=== PATIENT | female | born 1985 | race Caucasian/White ===

== ENCOUNTER 2025-06-05 15:14 | Outpatient (AMB) | payer BC, SELFPAY ==
--- NOTE | 2025-06-05 15:48 | MHC.PC.OV ---
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 Operator Required: No Accompanied by: Self / Same As Patient Allergies No Known Allergies Allergy (Verified 06/05/25 15:49) Tobacco use date assessed: 06/05/25 Dental Screening Dental Screen Date: 06/05/25 Did you have a dental visit in the last 12 months?: Yes Did you have a dental problem in the last 6 months where you did not have access to dental care?: No Was dental information given to patient?: Patient has dentist HPI HPI Comments History of Present Illness Details History of Present Illness The patient is a 40-year-old female presenting to [facility] care with a new primary care provider to obtain referrals for specialty care. Need for specialist referrals: The patient's changed jobs, resulting in a new insurance plan that requires referrals for specialty care. Her previous primary care provider left the practice, and the new, un-met provider in that practice denied her a dermatology referral without an appointment. She requires referrals for podiatry for a toe issue, dermatology for eczema, audiology for hearing aid repair, and potentially F[facility] BLOCK INSERTER REMOVER for continued care. Ingrown toenail: The patient dropped a hammer on her toe in January, which led to severe cellulitis treated with Bactrim. The toenail subsequently fell off and is now growing back in a way that is becoming ingrown and starting to hurt. She attempted to use floss to guide the nail growth but notes it is already coming down. 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 She has a cochlear implant on the left side, placed in 2018, and an inner ear hearing aid on the right side which is currently broken. Severe Eczema: The patient has severe eczema that is worsening. Her current cream, Namluvio, which she has been using for about four months, has stopped working effectively. She has experienced cracked and bleeding hands and raw skin behind her knees. She is interested in trying Dupixent. Generalized Anxiety Disorder (ARACELY): The patient was recently diagnosed with generalized anxiety disorder and has been seeing a therapist. She will need to find a new therapist as her current one is in her previous practice. History of Prediabetes and Elevated Blood Pressure: The patient has a history of prediabetes, which resolved with weight loss. She continues to work on her blood pressure, which she checks daily and notes is pretty stable. Abnormal Uterine Bleeding: After she finished nursing her second child, the patient's period returned with a vengeance . 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 - Housing: Lives in [place], [place]. - Family Status: with a 13-year-old and a 12-year-old. Family History: - Breast cancer: Present in great aunts and distant cousins. - Mother: Has very dense breasts requiring follow-up sonograms after mammograms. - Children: In the process of being tested for genetic hearing loss. Diagnostic Results: - Pap smear: Last performed in May of the previous year. - Blood work: Performed in November or December. - Genetic testing: Recent results indicate a genetic component to her hearing loss. 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 - Orders will include CBC, CMP, A1c, lipids, TSH, syphilis, hepatitis B, hepatitis C, HIV, B12, folate, vitamin D, and a urinalysis. - Plan to schedule a follow-up visit to discuss the results. [facility] Medical History (Updated 06/07/25 @ 13:07 by Binh Moscoso MD) Exhaustion Sleep disturbance Snoring ARACELY (generalized anxiety disorder) Sleep apnea Ingrown toenail Eczema Hearing aid worn Cochlear implant in place Family History (Updated 06/05/25 @ 15:59 by Nikolas Aguillon MA) Father High cholesterol Mother High cholesterol High blood pressure Social History Housing: House Patient Tobacco Use Status: Never used Tobacco service: No Current occupational status: employed Cognitive needs: No Hearing needs: Yes Vision needs: No Questionnaire PHQ-9 Over the last 2 weeks, how often have you been bothered by any of the following problems? 1. Little interest or pleasure in doing things: not at all 2. Feeling down, depressed, or hopeless: not at all 3. Trouble falling or staying asleep, or sleeping too much: several days 4. Feeling tired or having little energy: several days 5. Poor appetite or overeating: several days 6. Feeling bad about yourself - or that you are a failure or have let yourself or your family down: several days 7. Trouble concentrating on things, such as reading the newspaper or watching television: several days 8. Moving or speaking so slowly that other people could have noticed. Or the opposite - being so fidgety or restless that you have been moving around a lot more than usual: not at all 9. Thoughts that you would be better off or of hurting yourself in some way: not at all Total score: 5 Source: Developed by Drs. Matias Coleman, Jane Taylor, Dillon Pate and colleagues, with an educational demetrius from [employer]. Thrive Questionnaire Date Thrive assessed: 06/05/25 I am a: Patient What is your living situation today?: I have a steady place to live Within the past 12 months, did the food you bought not last and you didn't have the money to get more?: Sometimes True Within the past 12 months, did you worry whether your food would run out before you got money to buy more?: Sometimes True Do you have trouble paying for medicines?: No Do you have trouble getting transportation to medical appointments?: No Do you have trouble paying your heating and electricity bill?: No Do you have trouble taking care of your child, family member or friend?: No Are you currently unemployed and looking for a job?: No Are you interested in more education?: No Please select the resources that you would like help with: None Currently or been in a relationship where the following occur: No concerns reported THRIVE Score: 2 AUDIT C Alcohol Use Questionnaire (AUDIT-C) 1. How often do you have a drink containing alcohol?: 4 or more times a week 2. How many drinks containing alcohol do you have on a typical day when you are drinking?: 1 or 2 3. How often do you have six or more drinks on one occasion?: Never Total Score: 4 ARACELY-7 AMB Questionnaire ARACELY-7 Feeling nervous, anxious, or on edge: 3 = Nearly every day Not being able to stop or control worryin = Several days Worrying too much about different things: 2 = More than half the days Trouble relaxin = More than half the days Being so restless that it is hard to sit still: 1 = Several days Becoming easily annoyed or irritable: 3 = Nearly every day Feeling afraid as if something awful might happen: 0 = Not at all Total ARACELY-7 score (0-4 normal; 5-9 mild; 10-14 moderate; 15-21 severe): 12 Source: Developed by Drs. Matias Coleman, Jane Taylor, Dillon Pate and colleagues, with an educational demetrius from [employer]. Review of Systems Narrative Review of Systems - General: Reports feeling exhausted all the time. - HEENT: Reports hearing loss; has a cochlear implant on the left and a broken in-ear hearing aid on the right. - Cardiovascular: Reports daily checks of blood pressure, which is elevated but stable. Denies chest pain. - Neurological/Sleep: Reports snoring and not feeling refreshed in the morning. - Gastrointestinal: Denies having a bowel movement every day, but states when she does, it is normal for her. - Genitourinary/Gynecological: Had normal pregnancies and childbirths. Periods are light, with a day or two of spotting, managed by a Mirena IUD. - Integumentary: Reports severe, worsening eczema, with dryness, cracking, and bleeding of hands, and raw skin behind her knees. - Musculoskeletal: Reports a great toe is becoming an ingrown nail and starting to hurt. Denies other pain. - Psychiatric: Reports generalized anxiety disorder. 10-point ROS reviewed and negative except as noted in HPI Physical exam (Primary Care) Vital Signs: Last Vital Signs Temp 97.9 F 06/05/25 15:57 Pulse 84 06/05/25 15:57 Resp 16 06/05/25 15:57 BP 141/88 H 06/05/25 15:57 Pulse Ox 100 06/05/25 15:57 Oxygen Delivery Method Room Air 06/05/25 15:57 BMI result Body Mass Index 38.1 Tobacco/Smoking Status: Tobacco use Status Tobacco use date assessed 06/05/25 06/05/25 15:56 Patient Tobacco Use Status Never used Tobacco 06/05/25 15:56 PHQ-9: PHQ-9 Score PHQ-9: Total score 5 06/05/25 15:56 Thrive Assessment: Date of Thrive Assessment Date Thrive assessed 06/05/25 06/05/25 15:56 Currently or been in a relationship where the following occur: No concerns reported Narrative Physical Exam General: Well-appearing, in no acute distress. Vital signs: Within normal limits. HEENT: Normocephalic, atraumatic. PERRLA, EOMI. Conjunctiva clear, sclera anicteric. Oropharynx clear, mucous membranes moist. TMs intact bilaterally. Neck: Supple, no lymphadenopathy, no thyromegaly, no JVD or carotid bruits. Cardiovascular: RRR, normal S1/S2, no murmurs, rubs, or gallops. Peripheral pulses 2+ and symmetric. No edema. Respiratory: Lungs clear to auscultation bilaterally, no wheezes, rales, or rhonchi. Normal effort. Abdomen: Soft, non-tender, non-distended. Normoactive bowel sounds. No hepatosplenomegaly, no masses. MSK: Full range of motion, no joint swelling or deformity. Normal gait. Skin: Warm, dry, intact. No rashes, lesions, or pallor. Notable for severe eczema, particularly on hands and behind knees. Neuro: Alert and oriented x3. Cranial nerves II-XII intact. Strength 5/5 throughout. Sensation intact. Reflexes 2+ symmetric. Normal coordination and gait. Psych: Appropriate mood and affect. Normal judgment and insight. Recently diagnosed with general anxiety disorder. Coding Level of Care Code New Pt Level 4 (11268) Add On Problem Visit Only Diagnoses Cochlear implant in place Z96.21 Hearing aid worn Z97.4 Eczema L30.9 Ingrown toenail L60.0 Sleep apnea G47.30 ARACELY (generalized anxiety disorder) F41.1 Snoring R06.83 Sleep disturbance G47.9 Exhaustion R53.83 Assessment & Plan Assessment & Plan (1) Cochlear implant in place: Code(s): Z96.21 - Cochlear implant status Category: Medical (2) Hearing aid worn: Code(s): Z97.4 - Presence of external hearing-aid Category: Medical (3) Eczema: Code(s): L30.9 - Dermatitis, unspecified Category: Medical (4) Ingrown toenail: Code(s): L60.0 - Ingrowing nail Category: Medical (5) Sleep apnea: Code(s): G47.30 - Sleep apnea, unspecified Category: Medical (6) ARACELY (generalized anxiety disorder): Code(s): F41.1 - Generalized anxiety disorder Category: Medical (7) Snoring: Code(s): R06.83 - Snoring Category: Medical (8) Sleep disturbance: Code(s): G47.9 - Sleep disorder, unspecified Category: Medical (9) Exhaustion: Code(s): R53.83 - Other fatigue Category: Medical Plan Consent The patient verbally consented to having a picture taken of her toe for documentation in her chart. Patient was informed and verbally consented to the use of an ambient scribe for clinic note documentation during this visit. Plan 1. Referral Management - Provide open referrals for podiatry, dermatology, and audiology. - Provide a referral for her [facility]ERTER REMOVER. - The patient was informed that the practice has an in-house podiatry department. 2. Ingrown Toenail - Place referral for in-house podiatry, who will call to schedule an appointment. - Advised patient to keep her existing podiatry appointment and take whichever appointment is sooner. 3. Suspected Sleep Apnea - Based on symptoms of snoring, unrefreshing sleep, and constant exhaustion, sleep apnea is suspected. - Will order a home sleep study to investigate. Discussion Notes I met with the patient, a 40-year-old female, who is establishing care with me as her new primary care provider. The main reason for her visit was the need for specialist referrals due to a change in her insurance plan. I agreed to provide open referrals for podiatry, dermatology, audiology, and her established [facility] [employer] INSERTER REMOVER. We discussed her ingrown toenail, and I recommended she see our in-house tile layer supervisor, advising her to take whichever appointment comes first, her scheduled one or ours. Given her report of snoring and constant fatigue, I recommended a home sleep study to evaluate for sleep apnea, which she has never been tested for. I also ordered comprehensive baseline blood work, including a CBC, CMP, A1c, lipid panel, and TSH, among others, to establish a baseline for her health. We will have a follow-up appointment to discuss the results. I performed a limited physical exam and assured the patient that I was billing for a new patient encounter, not a full physical, to avoid issues with her insurance. Patient Instructions - You will receive referrals for podiatry, dermatology, and audiology. - Our office will provide a referral for our in-house tile layer supervisor, who will call you to schedule an appointment. Please keep your existing podiatry appointment for next and take whichever appointment becomes available sooner. - We are ordering a home sleep study for you. A company will call you to arrange picking up the testing kit. - Please go to the lab to have comprehensive blood work and a urine test done. - Schedule a follow-up appointment to discuss all of your test results. - Please let us know if you have any difficulty getting an appointment with your F[facility] BLOCK INSERTER REMOVER, and we can provide that referral as well. Medical Decision Making The patient is a 40-year-old female establishing care today. Her primary need is obtaining specialist referrals due to a new insurance policy requiring them, which her prior practice failed to provide for an established patient of record. Given her straightforward request and status as an established patient within her previous health system, I find it clinically appropriate to issue the requested referrals for podiatry, dermatology, audiology, and her established [facility] [employer] INSERTER REMOVER. Upon review of her symptoms, several new diagnostic avenues were identified. The patient reports snoring, constant exhaustion, and unrefreshing sleep. While she attributes this to anxiety, these are classic symptoms of obstructive sleep apnea, a condition for which she has never been evaluated. Therefore, ordering a home sleep study is a logical next step to rule out or confirm this diagnosis. As this is a new patient encounter and her last labs were several months ago with a different provider, obtaining comprehensive baseline labs is essential for ongoing management. The panel ordered (CBC, CMP, A1c, lipids, TSH, vitamin levels) will provide a current metabolic and hematologic status, screen for common conditions, and establish a new baseline for her care within this practice. A follow-up visit is planned to review these results and formulate a long-term care plan. Total Time Statement 30 min Total time spent caring for the patient today includes pre-visit chart review, documentation, review of laboratory and diagnostic imaging results, medication reconciliation, medically necessary evaluation, counseling on diagnoses, care coordination, ordering appropriate tests and medications, review of tests performed by other providers, reporting test results to the patient, and communication with other healthcare providers. Orders: Orders Complete Blood Count Auto Diff 06/05/25 Z. - Encounter for screening, unspecified Syphilis Screen 06/05/25. - Encounter for screening, unspecified Comprehensive Met. Panel 06/05/25. - Encounter for screening, unspecified Magnesium 06/05/25 Z. - Encounter for screening, unspecified Vitamin D 25-OH (D2 and D3) 06/05/25 Z. - Encounter for screening, unspecified RT home sleep study 06/05/25 G47.30 - Sleep apnea, unspecified Hepatitis B Surface Antigen 06/05/25 Z13. - Encounter for screening, unspecified Hepatitis C Antibody 06/05/25 Z13. - Encounter for screening, unspecified TSH reflex Free T4 06/05/25 Z13. - Encounter for screening, unspecified CT NG by PCR Urine 06/05/25 Z13. - Encounter for screening, unspecified HIV Ab/Ag 06/05/25 Z13. - Encounter for screening, unspecified UA CC w/rflx Micro + Cult 06/05/25 Z13. - Encounter for screening, unspecified Lipid Panel 06/05/25 Z13. - Encounter for screening, unspecified Vitamin B12 and Folate 06/05/25 Z13. - Encounter for screening, unspecified Hemoglobin A1c 06/05/25 Z13. - Encounter for screening, unspecified Hepatitis B Surface Antibody 06/05/25 Z13. - Encounter for screening, unspecified Referrals Podiatry Referral L60.0 - Ingrowing nail Dermatology Referral L30.9 - Dermatitis, unspecified Audiology Referral Z96.21 - Cochlear implant status, Z97.4 - Presence of external hearing-aid
[2025-06-05 15:57] VITALS: BP 141/88; PULSE 84; RESP 16; TEMP 36.6; O2SAT 100; BMI 38.1
--- OUTSIDE RECORDS SUMMARY | 2025-06-05 23:47 | XMS_ITS | Clinical Summary ---
Author Organization [facility] Address [address] [place] [address] Care Team Providers Care Layaway Clerk Name Role Phone Diamond Mccormick Primary Care Provider [phone] Allergies Active Allergy Reactions Criticality Noted Date Comments Other 08/17/2013 Other Reaction(s): Not available Social History Tobacco Use Types Packs/Day Years Used Date Smoking Tobacco: Never Smokeless Tobacco: Never Tobacco Cessation:Counseling Given: Not Answered Alcohol Use Standard Drinks/Week Comments Yes 0 (1 standard drink = 0.6 oz pur e alcohol) occ Comments Unknown Sex and Gender Information Value Date Recorded Sex Assigned at Not on file Legal Sex Female 3:30 PM EDT Gender Identity Not on file Sexual Orientation Not on file Last Filed Vital Signs Vital Sign Reading Time Taken Comments Blood Pressure - - Pulse - - Temperature - - Respiratory Rate - - Oxygen Saturation - - Inhaled Oxygen Concentration - - Weight 99.8 kg (220 lb) 12/26/2024 3:05 PM EDT Height 167.6 cm (5' 6 ) 12/26/2024 3:05 PM EDT Body Mass Index 35.51 12/26/2024 3:05 PM EDT Plan of Treatment Health Maintenance Due Date Last Done Comments HIV Screening 1986 Hepatitis C Screening 2004 Hepatitis B Vaccines (1 of 3 - 19+ 3-dose series) 2005 Pneumococcal Vaccine: At-Ris k and Pediatric Patients (0 to 49 Years) (1 of 2 - PCV) 2005 Pap Smear 2007 HPV Vaccines (1 - 3-dose SCD M series) 2013 Cervical Cancer Screening 2016 HPV/Cotest 2016 COVID-19 Vaccine (3 - 2024-2 6 season) 2025 03/31/2021, 03/09/2021 Influenza Vaccine (#1) 2025 , 06/03/2021 DTaP,Tdap,and Td Vaccines (2 - Td or Tdap) 07/08/2031 07/08/2021 Zoster Vaccines (1 of 2) 2036 Hepatitis A Vaccines Aged Out 12/09/2016 No long er eligible based on patient's age to complete this topic MMR Vaccines Aged Out No longer eligi ble based on patient's age to complete this topic Meningococcal Vaccine Aged Out No nuvia mc eligible based on patient's age to complete this topic Insurance [employer] Care Teams Layaway Clerk Relationship Specialty Start Date End Date Diamond Mccormick [address] [place] [id number] PCP - General Family Medicine 12/14/24
--- OUTSIDE RECORDS SUMMARY | 2025-06-05 23:47 | XMS_ITS | Clinical Summary ---
Author Organization [facility], Located Within [facility] Address [address] [place] [address] Care Team Providers Care Shovel Handle Assembler Name Role Phone Diamond Mccormick DO Primary Care Provider [phone] Izzy Chisholm REGIONAL PROPERTY MANAGER Unavailable [phone] Allergies No known active allergies Medications * This document contains information received from the source organization and may not represent a complete record from that organization. acetaminophen (TYLENOL) 325 MG tabletIndication s: care following vaginal delivery Take 3 tablets (975 mg total) by mouth 4 times daily (every 6 hours) as needed for mild pain. 30 tablet 2 Active Additional Information Patient not taking.Reported on 02/21/2025 betamethasone, augmented, (DIPROLENE) 0.05 % ointmentIndicati ons:Eczema, unspecified type Apply topically 2 (two) times a day. 50 g 5 Active Additional Information Patient not taking.Reported on 02/21/2025 Nemolizumab-ilto (NEMLUVIO SC) Inject under the skin. Active docusate sodium (COLACE) 100 MG capsule as needed. Active sulfamethoxazole -trimethoprim (BACTRIM DS,SEPTRA DS) 800-160 MG per tabletIndication s:Cellulitis of right toe Take 1 tablet by mouth 2 (two) times a day. 14 tablet 5 Active naproxen (NAPROSYN) 500 MG tabletIndication s:Contusion of right great toe without damage to nail, initial encounter Take 1 tablet (500 mg total) by mouth 2 (two) times a day with meals. Take with meals or food to reduce stomach upset. 20 tablet Active Active Problems Problem Noted Date Diagnosed Date Eczema 11/21/2024 Hearing loss 11/21/2024 Resolved Problems Problem Noted Date Diagnosed Date Resolved Date 39 weeks gestation of 09/15/2021 11/21/2024 and not yet deliver ed in third trimester 08/27/2021 11/21/2024 Pain in joint, lower leg 11/22/2012 Immunizations Immunization Administration Dates Next Due Covid-19 MRNA Vaccine - Pfizer 12+ (Purple Cap) 03/31/2021,03/09/2021 Hepatitis A 12/09/2016 Influenza, Quadrivalent (FLU CELVAX) MDCK, Preservative Free IM 06/03/2021 Influenza, Unspecified 06/03/2021,06/03/2021 Tdap 07/08/2021 Family History Medical History Relation Name Comments Depression Brother 1 Adrian Pickens Mental illness Brother 1 Adrian Pickens Substance Abuse Brother 1 Adrian Pickens Hypertension Brother 2 Hyperlipidemia Father Dementia Maternal Grandfather Demetrius Bond Diabetes Maternal Grandfather Demetrius Bond Heart attack Maternal Grandfather Demetrius Bond Stroke Maternal Grandfather Demetrius Bond Diabetes Maternal Grandmother Ailin Bond Diabetes Mother Oksana Bond Hypertension Mother Oksana Bond Diabetes Paternal Grandfather Danatamirlaw Pickens Diabetes Paternal Grandmother Aleah Pickens Heart disease Paternal Grandmother Aleah Nelia C HF Relation Name Status Comments Brother 1 Adrian Pickens Alive Brother 2 Father Alive Maternal Grandfather Demetrius Bond Alive Maternal Grandmother Ailin Bond Alive Mother Oksana Bond Alive Paternal Grandfather Danagabinoflorentin Pickens Alive Paternal Grandmother Aleah Nelia Alive Social History Tobacco Use Types Packs/Day Years Used Date Smoking Tobacco: Never Smokeless Tobacco: Never Tobacco Cessation:Counseling Given: Not Answered Alcohol Use Standard Drinks/Week Comments Yes 0 (1 standard drink = 0.6 oz pur e alcohol) [facility] Utilities Answer Date Recorded In the past 12 months has e [employer], gas, oil, or water company threatened to shut off services in your home? No 02/20/2025 Social Connection and Isolation Panel Answer Date Recorded In a typical week, how many times do you talk on the phone with family, friends, or neighbors? More than three times a week 02/20/2025 Frequency of Social Gatherin gs with Friends and Family Not on file 02/20/2025 Attends Episcopal Services Not on file 02/20 Active Member of Clubs or Organizations Not on f ile 02/20/2025 Attends Club or Organization Meetings Not on jairon e 02/20/2025 Marital Status Not on file 02/20/2025 AUDIT-C Answer Date Recorded Q1: How often do you have a drink containing alcohol? 4 or more times a week 03/27/2025 Q2: How many drinks containi ng alcohol do you have on a typical day when you are drinking? 1 or 2 Q3: How often do you have si x or more drinks on one occasion? Never 03/27/2025 PHQ-2 Answer Date Recorded PHQ-2 Total Score 1 04/24/2025 Hunger Vital Sign Answer Date Recorded Within the past 12 months, y ou worried that your food would run out before you got the money to buy more. Never true 02/21/20 25 Within the past 12 months, t he food you bought just didn't last and you didn't have money to get more. Never true 02/20/2025 PRAPARE - Transportation Answer Date Re corded In the past 12 months, has l ack of transportation kept you from medical appointments or from getting medications? No 01/26 In the past 12 months, has l ack of transportation kept you from meetings, work, or from getting things needed for daily living? No 02/20/2025 Housing Stability Vital Sign Answer Steven e Recorded In the last 12 months, was t here a time when you were not able to pay the mortgage or rent on time? No 02/20/2025 In the past 12 months, how m any times have you moved where you were living? 2 02/20/2025 At any time in the past 12 m [facility], were you homeless or living in a skilled nursing (including now)? No 02/20/2025 Physical Activity Answer Date Recorded On average, how many days pe r week do you engage in moderate to strenuous exercise (like a brisk walk)? 3 days 02/19/2025 On average, how many minutes do you exercise per day at this level? 20 min 02/19/2025 Education Answer Date Recorded What is the highest level of school you have completed or the highest degree you have received? Associate degree: academic program 11/20/2024 Comments No Sex and Gender Information Value Date Recorded Sex Assigned at Female 11/21/2024 12:17 PM EDT Legal Sex Female 3:48 PM EDT Gender Identity Female 11/21/2024 12:17 PM EDT Sexual Orientation Heterosexual (straight) 11/21 12:17 PM EDT Last Filed Vital Signs Vital Sign Reading Time Taken Comments Blood Pressure 122/81 02/21/2025 8:31 AM EDT Pulse 87 02/21/2025 8:31 AM EDT Temperature 36.6 C (97.8 F) 02/21/2025 8:31 AM EDT Respiratory Rate 20 02/21/2025 8:31 AM EDT Oxygen Saturation 98% 02/21/2025 8:31 AM EDT Inhaled Oxygen Concentration - - Weight 101 kg (222 lb 4.8 oz) 02/20/2025 3:02 PM EDT Height 167.6 cm (5' 6 ) 02/20/2025 3:02 PM EDT Body Mass Index 35.88 02/20/2025 3:02 PM EDT Plan of Treatment Upcoming Encounters Date Type Department Care Team (Late st Contact Info) Description 08/02/2025 2:30 PM EST Office Visit [facility] [address] [place] [address] Garland Francisco S, LEASE ATTENDANT [address] [place] [address] Health Maintenance Due Date Last Done Comments Hepatitis C Virus Screening 1986 Hepatitis B Vaccines (1 of 3 - 19+ 3-dose series) 2005 Influenza Vaccine 01/25/2025 06/03/2021, 06/03/2021, 06/03/2021 COVID-19 Vaccine ( season) 2025 09/02/2021, 03/31/2021, 03/09/2021 Pap Smear (Ages 21-65) 02/06/2026 (Previously Completed) Physical 02/21/2028 02/20/2025, 02/20/2025, 08/03/2021 DTaP/Tdap/Td Vaccines (2 - Td or Tdap) 07/08/2031 07/08/2021 HIV Screening Completed 06/29/2021 Colonoscopy (Out of Age Range) Discontinued HPV Vaccines (No Doses Required) Completed Pneumococcal Vaccine: Pediatric (0-5 Years) and At-Risk Patients (6 to 49 Years) Aged Out No longer eligible b ased on patient's age to complete this topic Procedures Procedure Name Priority Date/Time Associated Diagnosis Comments HIV 1/2 AG/AB CMIA REFLEX TO CONFIRMATION Routine 06/29/2021 11:08 AM EST from Last 3 Months or Most Recently Relevant to Health Maintenance Results * HIV 1/2 Ag/Ab CMIA Reflex to Confirmation (06/29/2021 11:08 AM EST) HIV Ag/Ab, 4th Gen Non-Reacti ve Non-Reacti ve [facility] Comment: Results show no evidence of infection by HIV 1/2. If clinically indicated, repeat CMIA or test by nucleic acid amplification. Other 06/29/2021 11:0 8 AM EST 06/29/2021 11:17 PM EST Narrative [facility] - 06/30/2021 12:47 PM EST FASTING:NO us Emili Fowler MD LAB BLOOD ORDERABLES Final Result [facility] [address] [place], [place] from Last 3 Months or Most Recently Relevant to Health Maintenance Insurance [facility] Advance Directives * Full Code (Latest Code Status on File) Date Activated Date Inactivated Comments 09/15/2021 11:53 PM * Full Code Date Activated Date Inactivated Comments 09/15/2021 4:56 AM 09/15/2021 11:53 PM * Full Code Date Activated Date Inactivated Comments 08/27/2021 5:25 PM 09/15/2021 4:26 AM Care Teams Shovel Handle Assembler Relationship Specialty Start Date End Date Diamond Mccormick DO [address] [place] [address] PCP - General Family Medicine 11/21/24 Izzy Chisholm, REGIONAL PROPERTY MANAGER [facility] [place] [address] Carpenter Clinical Social Work 03/27/25
--- OUTSIDE RECORDS SUMMARY | 2025-06-05 23:47 | XMS_ITS ---
Author Name [facility] Organization Unknown History of Medication Use Medication Directions Dispensed Refills Start Date End Date Stat us naproxen (NAPROSYN) 500 MG tablet Take 1 tablet (500 mg total) by mouth 2 (two) times a day with meals. Take with meals or food to reduce stomach upset. 02/21/2025 active sulfamethoxazole-tr imethoprim (BACTRIM DS,SEPTRA DS) 800-160 MG per tablet Take 1 tablet by mouth 2 (two) times a day. 02/20/2025 active betamethasone, augmented, (DIPROLENE) 0.05 % ointment Apply topically 2 (two) times a day. 11/21/2024 active acetaminophen (TYLENOL) 325 MG tablet Take 3 tablets (975 mg total) by mouth 4 times daily (every 6 hours) as needed for mild pain. 09/17/2021 active Baby Aspirin 81 mg chewable tablet 1 tablet every day by oral route. 1 tablet every day by oral route. 05/04/2021 completed None recorded. (No additional sig information) completed clobetasol 0.05 % topical ointment APPLY A THIN LAYER TO THE AFFECTED AREA(S) BY TOPICAL ROUTE 2 TIMES PER DAY APPLY A THIN LAYER TO THE AFFECTED AREA(S) BY TOPICAL ROUTE 2 TIMES PER DAY completed docusate sodium (COLACE) 100 MG capsule as needed. active docusate sodium 100 mg capsule docusate sodium 100 mg capsule completed hydrocortisone 2.5 % topical cream hydrocortisone 2.5 % topical cream completed ibuprofen 800 mg tablet ibuprofen 800 mg tablet completed Mirena 20 mcg/24 hours (7 yrs) 52 mg intrauterine device Take 1 device by intrauterine route. Take 1 device by intrauterine route. complete d Nemolizumab-ilto (NEMLUVIO SC) Inject under the skin. active Allergies Allergen Reaction Severity Comment Documented Date Source Statu s OTHER Other Reaction( s): Not available 08/17/2013 [facility] active NO KNOWN ALLERGIES [facility] Problems Problem Status Onset Date Problem Type Date of Resolution Source Contusion of right great toe without damage to nail, initial encounter active EncounterDiagnosisAct H [facility] Eczema active 2024-11-21 ProblemAct [facility] Hearing loss active 2024-11-21 ProblemAct [facility] Sensorineural hearing loss (SNHL), bilateral active EncounterDiagnosisAct [facility] Abnormal cervical Papanicolaou smear active ProblemAct [facility] Immunizations Vaccine Date Source Lot Number Status Tdap 07/08/2021 [facility] [id number] completed Influenza, Quadrivalent (FLU CELVAX) MDCK, Preservative Free IM 06/03/2021 [facility] [id number] completed Influenza, Quadrivalent (FLU CELVAX) MDCK, Preservative Free IM 06/03/2021 [facility] [id number] completed Influenza, Unspecified 06/03/2021 [facility] m[facility] Influenza, Unspecified 06/03/2021 [facility] mpleted Covid-19 MRNA Vaccine - Pfiz er 12+ (Purple Cap) 03/31/2021 [facility] completed Covid-19 MRNA Vaccine - Pfiz er 12+ (Purple Cap) 03/31/2021 [facility] completed Covid-19 MRNA Vaccine - Pfiz er 12+ (Purple Cap) 03/09/2021 [facility] completed Covid-19 MRNA Vaccine - Pfiz er 12+ (Purple Cap) 03/09/2021 [facility] completed Hepatitis A 12/09/2016 [facility] completed Hepatitis A 12/09/2016 [facility] completed Encounters Encounter Type Encounter Reason Primary Diagnosis Location Date Ambulatory Foot Injury Foot Injury [facility] 02/21/2025 Ambulatory Encounter for genera l adult medical examination without abnormal findings Encounter for general adult medical examination without abnormal findings [facility] 02/20/2025 Ambulatory Sensorineural hearin g loss, bilateral Sensorineural hearing loss, bilateral [facility] 01/23/2025 Ambulatory [facility] 12/26/2024 Ambulatory New Patient New Patient [facility] 12/19/2024 Ambulatory Dermatitis, unspecified Dermatitis, unspecified [facility] 11/21/2024 Ambulatory [facility] 12/21/2021 [facility]ulatory [facility] 12/21/2021 [facility]ulatory [facility] 11/13/2021 Ambulatory [facility] 10/28/2021 Ambulatory [facility] 09/29/2021 Inpatient Encounter for routine follow-up [facility] 09/15/2021 Ambulatory [facility] 09/09/2021 Ambulatory [facility] 09/09/2021 Ambulatory [facility] 09/09/2021 Ambulatory [facility] 09/02/2021 Ambulatory [facility] 09/02/2021 Ambulatory [facility] 09/02/2021 Ambulatory Encounter for supervision of normal , unspecified, third trimester [facility] 08/27/2021 Ambulatory [facility] 08/26/2021 Ambulatory [facility] 08/19/2021 Ambulatory [facility] 08/05/2021 Ambulatory [facility] 08/05/2021 Ambulatory Encounter for general adult medical examination without abnormal findings [facility] 08/03/2021 Ambulatory [facility] 07/22/2021 Ambulatory [facility] 07/08/2021 Ambulatory [facility] 06/03/2021 Care Team Organization Name Specialty Phone Email Start Date End Da te [facility] 04/18/2025 [facility] LYUDMILA ZACARIAS Primary Care 01/24/20 [employer] DEANN Primary Care 11/21/2024 03/22/2025 LaureanoAlcresta LYUDMILA ZACARIAS Primary Care 11/21/2024 [facility] the [employer] [facility] ([facility]) 11/12/2024 [facility] 04/28/2023 024 [facility] 03/18/2023 024 [facility] 11/26/2022 [facility] 04/28/2022 [facility] 12/25/2021 LaureanoAlcresta GASTON MARK Primary Care 09/15/2021 [facility] NO PCP Primary Care 08/03/2021 09/15/2021 [facility] Brenda Primary Care 08/03/2021 09/15/2021 [facility] 06/03/2021 12/21/2021 GiulianoiatrNan Meza.
--- OUTSIDE RECORDS SUMMARY | 2025-06-05 23:47 | XMS_ITS | Encounter Summary ---
Author Organization [facility] Address [address] [place] [address] Care Team Providers Care Protein Chemist Name Role Phone Diamond Mccormick DO Primary Care Provider [phone] Izzy Chisholm MERCERIZING RANGE FEEDER Unavailable [phone] Encounter Details Date Type Department Care Team (Late st Contact Info) Description 02/21/2025 Scanned Document [address] [place] [phone] Provider, Generic Social History Tobacco Use Types Packs/Day Years Used Date Smoking Tobacco: Never Smokeless Tobacco: Never Alcohol Use Standard Drinks/Week Comments Yes 0 (1 standard drink = 0.6 oz pur e alcohol) [facility] Utilities Answer Date Recorded In the past 12 months has e electric, gas, oil, or water company threatened to shut off services in your home? No 02/20/2025 Social Connection and Isolation Panel Answer Date Recorded In a typical week, how many times do you talk on the phone with family, friends, or neighbors? More than three times a week 02/20/2025 Frequency of Social Gatherin gs with Friends and Family Not on file 02/20/2025 Attends Hindu Services Not on file 02/20 Active Member of Clubs or Organizations Not on f ile 02/20/2025 Attends Club or Organization Meetings Not on jairon e 02/20/2025 Marital Status Not on file 02/20/2025 AUDIT-C Answer Date Recorded Q1: How often do you have a drink containing alcohol? 4 or more times a week 11/20/2024 Q2: How many drinks containi ng alcohol do you have on a typical day when you are drinking? 1 or 2 Frequency of Binge Drinking Not on file 10/26 PHQ-2 Answer Date Recorded PHQ-2 Total Score 1 02/19/2025 Hunger Vital Sign Answer Date Recorded Within [...] any time in the past 12 m [facility], were you homeless or living in a senior care (including now)? No 02/20/2025 Physical Activity Answer [...] Orientation Heterosexual (straight) 11/21 12:17 PM EDT documented as of this encounter Plan of Treatment Upcoming Encounters Date Type Department Care Team (Late st Contact Info) Description 08/02/2025 2:30 PM EST Office [facility] [address] [facility] [place] [address] Garland Francisco APRN [address] [facility] [place] [address] documented as of this encounter Visit Diagnoses Not on filedocumented in this encounter Care Teams Protein Chemist Relationship Specialty Start Date End Date Diamond Mccormick DO [address] [facility] [address] [place] [address] PCP - General Family Medicine 11/21/24 Izzy Chisholm, MERCERIZING RANGE FEEDER [address] [facility] [place] [address] Public Health Director Clinical Social Work 03/27/25 documented as of this encounter
== END 2025-06-05 16:30 | disposition home or self-care (01) ==
LOC: HO.HMCFMS 15:15
PROVIDERS: PCP Student in an Organized Health Care Education/Training Program; Visit Provider Student in an Organized Health Care Education/Training Program
DX: Z96.21 Cochlear implant status (principal); Z97.4 Presence of external hearing-aid; L30.9 Dermatitis, unspecified; L60.0 Ingrowing nail; G47.30 Sleep apnea, unspecified; F41.1 Generalized anxiety disorder; R06.83 Snoring; G47.9 Sleep disorder, unspecified; R53.83 Other fatigue

== ENCOUNTER 2025-06-18 14:57 | Outpatient (REF) | payer BC, SELFPAY ==
--- OUTSIDE RECORDS SUMMARY | 2025-06-18 16:14 | XMS_ITS | Clinical Summary ---
Author Organization [facility] Address [address] [place] [address] Care Team Providers Care Microfilm Camera Operator Name Role Phone Diamond Mccormick DO Primary Care Provider [phone] Allergies No known active allergies Medications * [...] food to reduce stomach upset. 20 tablet 5 Active Active Problems Problem Noted Date Diagnosed [...] Hypertension Mother Oksana Bond Diabetes Paternal Grandfather Danagabinoflorentin Pickens Diabetes Paternal Grandmother Aleah Nelia Heart disease Paternal Grandmother Aleah Nelia C HF Relation Name Status Comments Brother 1 Adrian Nelia Alive Brother 2 Father Alive Maternal Grandfather Demetrius Bond Alive Maternal Grandmother Ailin Bond Alive Mother Oksana Bond Alive Paternal Grandfather Marcella Nelia Alive Paternal Grandmother Aleah Nelia Alive Social History Tobacco Use Types Packs/Day Years Used Date Smoking Tobacco: Never Smokeless Tobacco: Never Tobacco Cessation:Counseling Given: Not Answered Alcohol Use Standard Drinks/Week Comments Yes 0 (1 standard drink = 0.6 oz pur e alcohol) [facility] Utilities Answer Date Recorded In the [...] and Family Not on file 02/20/2025 Attends Gnosticism Services Not on file 02/20 Active Member [...] time in the past 12 m [facility], were you homeless or living in a long term (including now)? No 02/20/2025 Physical Activity Answer [...] 02/20/2025 3:02 PM EDT Plan of Treatment Health Maintenance [...] Fowler MD LAB BLOOD ORDERABLES Final Result Performing Organization Address City/State/[facility] Co de Phone Number [facility] [address] [place], [place] from Last 3 Months or Most Recently Relevant to Health Maintenance Insurance [facility] [place] [id number] [facility] [place] [address] [place] [address] Advance Directives * Full Code (Latest Code Status on File) Date Activated Date Inactivated Comments 09/15/2021 11:53 PM * Full Code Date Activated Date Inactivated Comments 09/15/2021 4:56 AM 09/15/2021 11:53 PM * Full Code Date Activated Date Inactivated Comments 08/27/2021 5:25 PM 09/15/2021 4:26 AM Care Teams Microfilm Camera Operator Relationship Specialty Start Date End Date Diamond Mccormick DO [address] [address] PCP - General Family Medicine 11/21/24
--- OUTSIDE RECORDS SUMMARY | 2025-06-18 16:14 | XMS_ITS | Clinical Summary ---
Author Organization [facility] Address [address] [place] [address] Care Team Providers Care Canvas Goods Supervisor Name Role Phone Diamond Mccormick Primary Care Provider [phone] Allergies Active Allergy Reactions Criticality Noted Date [...] patient's age to complete this topic Insurance [facility] [employer] Care Teams Canvas Goods Supervisor Relationship Specialty Start Date End Date Diamond Mccormick [address] [place] [address] PCP - General Family Medicine 12/14/24
--- OUTSIDE RECORDS SUMMARY | 2025-06-18 16:14 | XMS_ITS | Encounter Summary ---
Author Organization [facility] Address [address] [place] [address] Care Team Providers Care Topographical Drafter Name Role Phone Diamond Mccormick DO Primary Care Provider Izzy Chisholm EMBOSSING TOOLSETTER Unavailable [phone] Encounter Details Date Type Department Care Team (Late st Contact Info) Description 02/21/2025 Scanned Document [address] [place] [phone] Provider, Generic Social History Tobacco Use Types Packs/Day Years Used Date Smoking Tobacco: Never Smokeless Tobacco: Never Alcohol Use Standard Drinks/Week Comments Yes 0 (1 standard drink = 0.6 oz pur e alcohol) [facility] Utilities Answer Date Recorded In [...] and Family Not on file 02/20/2025 Attends Christianity Services Not on file 02/20 Active Member [...] any time in the past 12 m [facility], were you homeless or living in a long-term (including now)? No 02/20/2025 Physical Activity Answer [...] as of this encounter Plan of Treatment Not on file documented as of this encounter Visit Diagnoses Not on filedocumented in this encounter Care Teams Topographical Drafter Relationship Specialty Start Date End Date Diamond Mccormick DO [address] [place], [place] [id number] PCP - General Family Medicine 11/21/24 Izzy Chisholm LCSW [address] [place] [address] [address] Senior Management Consultant Clinical Social Work 03/27/25 06/12/25 documented as of this encounter
[2025-06-18 18:23] LABS: Appearance Urine Clear; Glucose Urine UA Negative (Negative); PH 5.5 (5.0-9.0); Specific Gravity - Urine 1.020 (1.005-1.025)
[2025-06-18 18:29] LABS: MANUAL DIFF FLAG NO
[2025-06-18 18:37] LABS: Hematocrit 40.3 % (37.0-47.0); Hemoglobin 13.1 g/dl (12.0-16.0); Imm Gran Abs Auto 0.02 X10*3/uL (0.00-0.03); Imm Gran Pct Auto 0.2 % (0.0-0.4); Lymphocytes Absolute Auto 3.1 X10*3/uL (1.2-4.9); Mean Corpuscular HGB Conc 32.5 g/dl (31.0-35.0); Mean Corpuscular Hemoglobin 28.2 pg (27.0-33.0); Mean Corpuscular Volume 86.7 fL (80.0-98.0); NRBC Abs Auto 0.000 X10*3/uL (0.0-0.012); NRBC Pct Auto 0.0 /100WBC (0.0-0.2); Platelet Count 253 X10*3/uL (160-400); Red Blood Count 4.65 X10*6/uL (4.20-5.50); White Blood Count 8.2 X10*3/uL (4.8-10.8)
[2025-06-18 18:59] LABS: Alanine Aminotransferase 28 U/L (0-31); Albumin Level 5.0 g/dL (3.5-5.0); Alkaline Phosphatase 61 U/L (39-117); Anion Gap 12 (12-20); Aspartate Amino Transferase 23 U/L (5-31); Blood Urea Nitrogen 15 mg/dL (9-16); Calcium 9.6 mg/dL (8.4-10.2); Carbon Dioxide 25 mmol/L (22-29); Chloride 107 mmol/L (96-108); Cholesterol 149 mg/dL (<200); Estimated Glomerular Filt Rate > 60; HDL Cholesterol 68 mg/dL (>40); Magnesium 2.4 mg/dL (1.6-2.6); Potassium 3.5 mmol/L (3.3-5.1); Sodium 140 mmol/L (135-145); Total Protein 8.1 g/dL (6.5-8.0); Triglycerides 82 mg/dL (<150)
[2025-06-18 19:25] LABS: Folate 6.5 ng/mL (> or = 4.0); Vitamin B12 421 pg/mL (200-900)
[2025-06-18 23:00] LABS: CT PCR Urine NOT DETECTED (Not Detect.); NG PCR Urine NOT DETECTED (Not Detect.)
[2025-06-19 03:42] LABS: Syphilis Screen Nonreactive (Nonreactive)
[2025-06-19 03:59] LABS: HBS Num1 203.33 mIU/mL (0-7.99); HBsAGNum1 0.31 S/CO (0.00-0.99); HIV Num 1 0.07 S/CO (0.00-0.99); Hepatitis B Surface Antigen Negative (Negative); ~HepC Num1 0.27 S/CO (0.00-0.79); ~Hepatitis B Surface Antibody REACTIVE (Nonreactive); ~Hepatitis C Antibody Nonreactive (Nonreactive)
[2025-06-19 06:27] LABS: Follicle Stimulating Hormone 1.8 mIU/mL
== END 2025-06-18 14:58 | disposition home or self-care (01) ==
LOC: HO.HKASLDS 14:57
PROVIDERS: PCP Student in an Organized Health Care Education/Training Program; Visit Provider Student in an Organized Health Care Education/Training Program
DX: Z13.89 Encounter for screening for other disorder (principal); Z11.4 Encounter for screening for human immunodeficiency virus [HIV]; Z13.1 Encounter for screening for diabetes mellitus; Z13.21 Encounter for screening for nutritional disorder; Z13.29 Encounter for screening for other suspected endocrine disorder; Z13.6 Encounter for screening for cardiovascular disorders; Z20.2 Contact with and (suspected) exposure to infections with a predominantly sexual mode of transmission
CPT/HCPCS: 80053; 80061; 81003; 82306; 82607; 82670; 82746; 83001; 83036; 83735; 84443; 85025; 86706; 86780; 86803; 87340; 87389; 87491; 87591